=== PATIENT | female | born 1965 | race African-American/Black ===

== ENCOUNTER 2017-12-16 23:04 | Emergency (ER) | payer OTHER ==
[~2017-12-16] VITALS: Ht 172.7 cm; Wt 63.5 kg
[2017-12-16] MEDS ORDERED: CLOTRIMAZOLE 1%15 G1 TOP (23:34)
[2017-12-16] MEDS ORDERED: BACTRIM DS TAB1 EACH PO (23:48)
[2017-12-16] MEDS ORDERED: ACYCLOVIR 400400 MG PO (23:48)
[2017-12-16] MEDS ORDERED: ADDERALL 30 MG30 MG PO (23:49)
[2017-12-16] MEDS ORDERED: NARCAN4 MG NS (23:51)
[2017-12-16] MEDS ORDERED: HYDROXYZINE HCL25 M1 PO (23:51)
[2017-12-16] MEDS ORDERED: ROXICODONE30 M1 PO (23:51)
[2017-12-16] MEDS ORDERED: AMPHETAMINE SAL30 MG PO (23:52)
[2017-12-17 00:14] VITALS: BP 132/85
== END 2017-12-17 00:20 | disposition home or self-care (01) ==
LOC: ER 23:04
DX: R21 Rash and other nonspecific skin eruption (principal); Z88.5 Allergy status to narcotic agent; Z88.0 Allergy status to penicillin

== ENCOUNTER 2018-01-15 18:07 | Emergency (ER) | payer OTHER ==
[~2018-01-15] VITALS: Ht 177.8 cm; Wt 83.9 kg
--- NOTE | ~2018-01-15 | EKG ---
[address] [place] [address] ELECTROCARDIOGRAM REPORT Name: ZACHERY RAJPUTJANICE Room #: [facility]P [facility]ENTERHillaryHillary#: [id number] Admission: 01/15/18 Attend Phys: Discharge: 01/15/18 Date of : 67 Report #: [id number] THIS REPORT FOR: //name// [facility] ED Test Date: 2018-01-15 Test Time: 18:42:52 Pat Name: JANICE RAJPUT Department: Room: Gender: F Manager Decision Support: MZOOK : 1965 Requested By: Kin Jones Order Number: [id number] MD: Tyson Kim Measurements Intervals [place] Rate: 79 P: 49 AL: 174 QRS: 71 QRSD: 106 T: 60 QT: 392 QTc: 450 Interpretive Statements Sinus rhythm No significant abnormality No previous ECG available for comparison Electronically Signed On 01-17-2018 7:56:36 CDT by Tyson Kim [email or web address] <ELECTRONICALLY SIGNED> By: Tyson Kim MD, [facility] 01/17/18 0756 [id number] Tyson Kim MD, FACC /EPI
[~2018-01-15 18:07] MED LIST: ACYCLOVIR 400400 MG PO; ADDERALL 30 MG30 MG PO; AMPHETAMINE SAL30 MG PO; BACTRIM DS TAB1 EACH PO; CLOTRIMAZOLE 1%15 G1 TOP; HYDROXYZINE HCL25 M1 PO; NARCAN4 MG NS; ROXICODONE30 M1 PO
[2018-01-15 18:47] LABS: HEMATOCRIT 35.6 % (37.0-47.0); MCH 31.8 pg (26.0-34.0); MCHC 33.6 g/dL (28.0-37.0); MCV 94.6 fL (80.0-100.0); PLATELET COUNT 186 thou/uL (150-400); RBC 3.76 mil/uL (4.20-5.00); RDW 15.7 % (10.5-14.5); WBC 4.1 thou/uL (4.0-11.0)
[2018-01-15 18:54] LABS: ANION GAP 15 mmol/L (7-16); BUN 17 mg/dL (7-18); CALCIUM 9.1 mg/dL (8.5-10.1); CHLORIDE 108 mmol/L (98-107); CO2 21 mmol/L (21-32); CREATININE 1.4 mg/dL (0.6-1.0); GLUCOSE 98 mg/dL (74-106); POTASSIUM 3.1 mmol/L (3.5-5.1); SODIUM 144 mmol/L (136-145)
[2018-01-15 19:03] LABS: TROPONIN-I < 0.04 ng/mL (<0.06)
[2018-01-15 19:18] LABS: ABSOLUTE NEUTROPHILS 1.1 thou/uL (1.4-8.2)
[2018-01-15 21:13] LABS: URINE BILIRUBIN NEGATIVE (Negative); URINE BLOOD NEGATIVE (Negative); URINE CLARITY CLOUDY; URINE COLOR YELLOW; URINE GLUCOSE-RANDOM* NEGATIVE (Negative); URINE KETONES 1+ (Negative); URINE LEUKOCYTES-REFLEX NEGATIVE (Negative); URINE NITRITE-REFLEX NEGATIVE (Negative); URINE SPECIFIC GRAVITY 1.015 (1.005-1.035); URINE UROBILINOGEN 0.2 E.U./dl (0.2-1.0)
[2018-01-15 21:21] LABS: AMP/METHAMP Negative (Negative); BARBITURATES Negative (Negative); BENZODIAZEPINES Negative (Negative); COCAINE Negative (Negative); METHADONE Negative (Negative); OPIATES Negative (Negative); PCP Negative (Negative)
[2018-01-15 21:30] LABS: SSA (PROTEIN CONFIRMATORY) NEGATIVE (Negative); URINE PROTEIN (DIPSTICK) NEGATIVE (Negative)
[2018-01-15 22:32] VITALS: BP 106/72
== END 2018-01-15 22:34 | disposition home or self-care (01) ==
LOC: ER 18:07
PROVIDERS: Emergency Medicine
DX: R06.02 Shortness of breath (principal); F90.9 Attention-deficit hyperactivity disorder, unspecified type; Z88.0 Allergy status to penicillin; Z88.6 Allergy status to analgesic agent

== ENCOUNTER 2018-01-18 03:51 | Emergency (ER) | payer OTHER ==
[~2018-01-18] VITALS: Ht 172.7 cm; Wt 63.5 kg
--- NOTE | ~2018-01-18 | EKG ---
[address] [address] [place] [address] ELECTROCARDIOGRAM REPORT Name: ZACHERY RAJPUTJANICE Room #: [facility]ITALHillary#: [id number] Admission: 01/18/18 Attend Phys: Discharge: Date of : 67 Report #: [id number] THIS REPORT FOR: //name// [facility] ED Test Date: 2018-01-18 Test Time: 04:47:06 Pat Name: JANICE RAJPUT Department: Room: Gender: F Anchorman: [place] : 1965 Requested By: Kin Jones Order Number: [id number] MD: Tyson Kim Measurements Intervals [place] Rate: 55 P: 64 CA: 177 QRS: 65 QRSD: 94 T: 72 QT: 435 QTc: 416 Interpretive Statements Sinus rhythm Anteroseptal infarct, age indeterminate Compared to ECG 01/15/2018 18:42:52 No significant change was found Electronically Signed On 01-18-2018 7:39:52 CDT by Tyson Kim [email or web address] <ELECTRONICALLY SIGNED> By: Tyson iKm MD, [facility] 01/18/18 0739 [id number] 0447 Tyson Kim MD, FACC /EPI
[2018-01-18] MEDS ORDERED: TOPAMAX 100 MG100 MG PO (04:02)
[2018-01-18] MEDS ORDERED: ADDERALL 30 MG30 MG PO (04:02)
[2018-01-18 05:07] LABS: ABSOLUTE NEUTROPHILS 1.4 thou/uL (1.4-8.2); BASOPHILS 0.9 % (0.0-2.0); EOSINOPHILS 3.6 % (0.0-3.0); HEMATOCRIT 40.6 % (37.0-47.0); HEMOGLOBIN 13.4 gm/dL (12.0-15.0); LYMPHOCYTES 50.2 % (24.0-44.0); MCH 31.5 pg (26.0-34.0); MCHC 32.9 g/dL (28.0-37.0); MCV 95.8 fL (80.0-100.0); MONOCYTES 6.6 % (1.0-8.0); POLYS 38.7 % (36.0-66.0); RBC 4.24 mil/uL (4.20-5.00); RDW 15.6 % (10.5-14.5); WBC 3.7 thou/uL (4.0-11.0)
[2018-01-18 05:15] LABS: CALCIUM 9.6 mg/dL (8.5-10.1); CREATININE 1.5 mg/dL (0.6-1.0); POTASSIUM 3.3 mmol/L (3.5-5.1)
[2018-01-18 05:40] LABS: PLATELET COUNT 196 thou/uL (150-400)
[2018-01-18 05:41] LABS: LARGE PLATELETS OCCASIONAL
[2018-01-18 08:01] VITALS: BP 124/74
== END 2018-01-18 08:01 | disposition home or self-care (01) ==
LOC: ER 03:51
PROVIDERS: Emergency Medicine
DX: R55 Syncope and collapse (principal); G43.909 Migraine, unspecified, not intractable, without status migrainosus; Z88.6 Allergy status to analgesic agent; Z88.0 Allergy status to penicillin